=== PATIENT | female | born 1945 | race Caucasian/White ===

== ENCOUNTER 2022-12-16 17:42 | Emergency (ER) | payer OTHER ==
[~2022-12-16] VITALS: Ht 170.2 cm; Wt 70.8 kg
[~2022-12-16 17:42] MED LIST: CLEOCIN HCL150 MG PO; FENOFIBRATE160 MG PO; LEXAPRO5 MG PO; TRAZODONE HCL50 MG PO
== END 2022-12-17 13:54 | disposition home or self-care (01) ==
LOC: ER 17:42
DX: S32.591A Other specified fracture of right pubis, initial encounter for closed fracture (principal); S32.019A Unspecified fracture of first lumbar vertebra, initial encounter for closed fracture; W01.0XXA Fall on same level from slipping, tripping and stumbling without subsequent striking against object, initial encounter; Y93.9 Activity, unspecified; Y92.89 Other specified places as the place of occurrence of the external cause; Y99.9 Unspecified external cause status